=== PATIENT | female | born 1945 | race African-American/Black ===

== ENCOUNTER 2021-09-16 07:00 | Day surgery (SDC) | payer OTHER ==
[2021-09-13 14:19] LABS: Absolute Lymphocytes (CBC) 1.4 K/uL (0.7-4.9); Hematocrit 35.8 % (36.0-45.0); Lymphocytes % 22.3 % (15.3-44.8); MPV 7.5 fL (7.6-11.3)
[2021-09-13 14:28] LABS: Protime INR 1.04
[2021-09-13 14:35] LABS: Potassium 4.1 mmol/L (3.5-5.1)
--- NOTE | 2021-09-13 15:09 | RAD REPORT ---
EXAM DESCRIPTION: Richard Capone And Candelaria (2 Views)09/13/2021 2:16 pm CLINICAL HISTORY: Preop for Cardiac catheterization COMPARISON: 2020 FINDINGS: Areas of scarring within the mid left lung. The lungs appear clear of acute infiltrate. The heart is mildly to moderately enlarged. Aorta is tor tuous/ectatic IMPRESSION: No acute abnormalities displayed
[~2021-09-16 07:00] MED LIST: ATROPINE SULF 1 MG/10 ML SYR IV ONE; FENTANYL CITR 100 MCG/2 ML ONE; HEPA 1000U/500MLS 1,000 UNIT/500 ML BAG IV ONE; LIDOCAINE 1% 20 ML MDV ONE; MIDAZOLAM HCL 2 MG/2 ML INJ ONE; NA CHLORIDE 0.9% 0 ML ONE; NA CHLORIDE 0.9% 500 ML ONE; NITROGLYCERIN 100 MCG/ML SYR (for cath lab use only) IV ONE; NITROGLYCERIN/D5W 25 MG/250 ML BTL IV ONE
[2021-09-16] MEDS ORDERED: MIDAZOLAM HCL 2 MG/2 ML INJ ONE (07:42)
[2021-09-16 08:17] VITALS: TEMP 97.6
--- NOTE | 2021-09-16 09:19 | OP ---
Date of Procedure: 09/16/2021 Surgeon: Jacky Sewell MD Printed Products Assembler: Ms. Alicja Grant. Admitted to my service as an outpatient to the clinical laboratory aide today on 09/16/2021. Reason For Admission: Positive stress test and the need for left heart catheterization, selective co ronary arteriogram. Description Of Procedure: The patient was brought to the clinical laboratory aide as an outpatient, prepped and drap ed in routine sterile fashion. Given Versed and fentanyl for sedation. A 6-Kinyarwanda sheath introduced in the right common femoral artery successfully. Angiography there was normal. Angio-Seal was used to close the case. Didier catheter left and right were used to cannulate the coronary arteries. H er coronaries were tortuous but normal without any focal stenosis or plaquing. The patient tolerated the procedure well. There were no complications. Blood Loss: 5 mL. Postoperative Diagnosis: Abnormal stress test, normal coronaries. Plan: To continue medical therapy. The patient will remain in the hospital for 2 hours of bedrest a fter Angio-Seal and then she will go home and she will see me in the office in 2 weeks. JANET/FARHAD Voice ID: [id number] Report ID: [id number]
[2021-09-16 09:47] VITALS: BP 157/82; O2SAT 97
== END 2021-09-16 10:15 | disposition home or self-care (01) ==
LOC: CCL 07:00
DX: R94.39 Abnormal result of other cardiovascular function study (principal); R07.89 Other chest pain; I11.0 Hypertensive heart disease with heart failure; I50.32 Chronic diastolic (congestive) heart failure; I77.1 Stricture of artery; I65.23 Occlusion and stenosis of bilateral carotid arteries; I70.213 Atherosclerosis of native arteries of extremities with intermittent claudication, bilateral legs; E11.42 Type 2 diabetes mellitus with diabetic polyneuropathy; E78.2 Mixed hyperlipidemia; J44.1 Chronic obstructive pulmonary disease with (acute) exacerbation; G47.33 Obstructive sleep apnea (adult) (pediatric); K21.9 Gastro-esophageal reflux disease without esophagitis; E66.01 Morbid (severe) obesity due to excess calories; Z68.41 Body mass index [BMI] 40.0-44.9, adult; Z88.0 Allergy status to penicillin; Z88.3 Allergy status to other anti-infective agents; Z88.5 Allergy status to narcotic agent; Z88.8 Allergy status to other drugs, medicaments and biological substances; Z79.82 Long term (current) use of aspirin; Z79.84 Long term (current) use of oral hypoglycemic drugs; Z79.4 Long term (current) use of insulin; Z79.899 Other long term (current) drug therapy; Z20.822 Contact with and (suspected) exposure to COVID-19
CPT/HCPCS: 93005; 85025; 80048; 36415; 85610; 82947; 85730; 71046; 93454; U0003; C1893; C1760; Q9967; G0269; J2250 ×2; J3010; J7040; J1644; J0583